=== PATIENT | male | born 1995 | race Caucasian/White ===

== ENCOUNTER 2018-09-27 13:17 | Inpatient (IN) | payer BC, OTHER ==
[2018-09-27 13:50] LABS: MODE ROOM AIR; MetHgb Venous 0.3 %; Sample Type Blood venous; Site OTHER; Venous COHb 0.3 %; Venous Fraction OxyHgb 70.7 %; Venous Oxygen Sat 71.1 mmHG (55.0-75.0); Venous Total Hemglobin 18.3 g/dl
[2018-09-27 14:05] LABS: ADD MAN DIFF? NO
[2018-09-27 14:06] LABS: BASOPHILS % 0.3 % (0.0-2.0); HEMATOCRIT 50.9 % (42.0-52.0); HEMOGLOBIN 16.8 g/dl (14.0-18.0); LYMPHOCYTES # 1.4 10^3/ul (0.8-2.9); LYMPHOCYTES % 14.3 % (15.0-51.0); MEAN CORPUSCULAR HEMOGLOBIN 30.8 pg (29.0-33.0); MEAN CORPUSCULAR VOLUME 93.2 fl (82.0-101.0); MEAN PLATELET VOLUME 8.8 fl (7.4-10.4); MONOCYTE # 0.6 10^3/ul (0.3-0.9); MONOCYTES % 5.9 % (0.0-11.0); NEUTROPHIL # 7.9 10^3/ul (1.6-7.5); NEUTROPHILS % 79.1 % (39.0-77.0); PLATELET COUNT 266 10^3/UL (140-415); RED BLOOD COUNT 5.46 10^6/ul (4.70-6.10)
[2018-09-27] MEDS: SOD CHLORIDE 0.9% 760 ML IV (14:09)
[2018-09-27 14:17] LABS: ADD UMIC NO; UR ASCORBIC ACID NEGATIVE (NEGATIVE); UR BILIRUBIN (Dip) NEGATIVE (NEGATIVE); UR BLOOD (Dip) NEGATIVE (NEGATIVE); UR CLARITY CLEAR (CLEAR); UR COLOR STRAW (YELLOW); UR GLUCOSE (Dip) 3+ mg/dL (NEGATIVE); UR KETONES (Dip) 2+ mg/dL (NEGATIVE); UR LEUKOCYTE ESTERASE (Dip) NEGATIVE Leu/ul (NEGATIVE); UR NITRITE (Dip) NEGATIVE (NEGATIVE); UR TOTAL PROTEIN (Dip) NEGATIVE (NEGATIVE); UR UROBILINOGEN (Dip) NEGATIVE (NEGATIVE)
[2018-09-27 14:26] LABS: ANION GAP 30 (5-13); BLOOD UREA NITROGEN 13 mg/dl (7-20); CALCIUM 10.1 mg/dl (8.4-10.2); CARBON DIOXIDE 12 mmol/L (21-31); CHLORIDE 95 mmol/L (97-110); Estimated GFR > 60 mL/min (>60); MAGNESIUM 1.8 mg/dl (1.7-2.5); PHOSPHORUS 5.5 mg/dl (2.5-4.9); SODIUM 137 mmol/L (135-144)
[2018-09-27 14:32] LABS: GLUCOSE 546 mg/dl (70-220)
[2018-09-27 14:42] LABS: AMPHETAMINE/METHAMPHETAMINE Negative (NEGATIVE); BARBITURATES Negative (NEGATIVE); BENZODIAZEPINES Negative (NEGATIVE); CANNABINOIDS Negative (NEGATIVE); COCAINE Negative (NEGATIVE); OPIATES Negative (NEGATIVE)
[2018-09-27 14:58] LABS: ETHANOL < 10.0 mg/dl (0-0)
[2018-09-27] MEDS ORDERED: D10/0.45% NACL + KCL 40 MEQ 1,000 ML IV (15:11)
[2018-09-27] MEDS ORDERED: SOD CHLORIDE 0.9% 1,000 ML IV (15:11)
[2018-09-27] MEDS ORDERED: NS + KCL 40 MEQ 1,000 ML IV (15:11)
[2018-09-27] MEDS: LACTATED RINGER'S 760 ML IV (15:20)
[2018-09-27] MEDS ORDERED: DEXTROSE 50% 50 ML SYRINGE IV ×2 (15:30)
[2018-09-27 15:47] LABS: HEMOGLOBIN A1C 13.1 % (0-5.9)
[2018-09-27 16:11] LABS: AADO2 Venous 73.1 mmHg; MODE ROOM AIR; MetHgb Venous 0.2 %; Sample Type Blood venous; Site OTHER; Venous COHb 0.8 %; Venous Fraction OxyHgb 71.9 %; Venous Oxygen Sat 72.6 mmHG (55.0-75.0); Venous Total Hemglobin 17.5 g/dl
[2018-09-27 16:49] LABS: ANION GAP 23 (5-13); BLOOD UREA NITROGEN 12 mg/dl (7-20); CALCIUM 9.5 mg/dl (8.4-10.2); CARBON DIOXIDE 16 mmol/L (21-31); CHLORIDE 100 mmol/L (97-110); CREATININE 0.78 mg/dl (0.61-1.24); Estimated GFR > 60 mL/min (>60); GLUCOSE 287 mg/dl (70-220); PHOSPHORUS 3.4 mg/dl (2.5-4.9); POTASSIUM 4.3 mmol/L (3.5-5.1); SODIUM 139 mmol/L (135-144)
[2018-09-27] MEDS ORDERED: DOCUSATE SODIUM 100 MG CAP PO (17:00)
[2018-09-27] MEDS ORDERED: ONDANSETRON 4 MG INJ IV (17:00)
[2018-09-27] MEDS ORDERED: ZOLPIDEM 5 MG TAB PO (17:00)
[2018-09-27] MEDS ORDERED: NACL 0.9% 3 ML SYG IV (17:00)
[2018-09-27] MEDS ORDERED: morphine 2 MG INJ IV (17:00)
[2018-09-27] MEDS: NS + KCL 30 MEQ 1,000 ML IV (17:16)
[2018-09-27] MEDS: INSULIN REGULAR, HUMAN 100 UNIT in SOD CHLORIDE 0.9% 100 ML IV (17:17)
[2018-09-27] MEDS: D10/0.45% NACL + KCL 30 MEQ 1,000 ML IV ×2 (17:18→22:23)
[2018-09-27 19:24] LABS: ANION GAP 16 (5-13); BLOOD UREA NITROGEN 12 mg/dl (7-20); CALCIUM 9.3 mg/dl (8.4-10.2); CARBON DIOXIDE 21 mmol/L (21-31); CHLORIDE 102 mmol/L (97-110); CREATININE 0.66 mg/dl (0.61-1.24); Estimated GFR > 60 mL/min (>60); GLUCOSE 251 mg/dl (70-220); MAGNESIUM 1.9 mg/dl (1.7-2.5); PHOSPHORUS 3.1 mg/dl (2.5-4.9); POTASSIUM 4.1 mmol/L (3.5-5.1); SODIUM 139 mmol/L (135-144)
[2018-09-27] MEDS: DEXTROSE 10 %/0.45 % NACL 1,000 ML IV (22:12)
[2018-09-27 22:35] LABS: ANION GAP 11 (5-13); BLOOD UREA NITROGEN 11 mg/dl (7-20); CALCIUM 8.9 mg/dl (8.4-10.2); CARBON DIOXIDE 23 mmol/L (21-31); CHLORIDE 104 mmol/L (97-110); Estimated GFR > 60 mL/min (>60); GLUCOSE 197 mg/dl (70-220); MAGNESIUM 1.9 mg/dl (1.7-2.5); POTASSIUM 3.7 mmol/L (3.5-5.1); SODIUM 138 mmol/L (135-144)
[2018-09-27] MEDS: ACETAMINOPHEN 325 MG TAB PO (23:21)
[2018-09-27 23:53] LABS: MODE ROOM AIR; MetHgb Venous 0.3 %; Sample Type Blood venous; Site VENOUS LINE; Venous COHb 0.4 %; Venous Fraction OxyHgb 88.7 %; Venous Oxygen Sat 89.3 mmHG (55.0-75.0)
[2018-09-28] MEDS ORDERED: INSULIN GLARGINE [LANTus] (100 UNITS/ML) SYG SC
[2018-09-28] MEDS: INSULIN GLARGINE [LANTus] (100 UNITS/ML) SYG SC (01:21)
[2018-09-28] MEDS: HYDROCODONE/APAP (5/325) TAB PO (01:27)
[2018-09-28] MEDS: D10/0.45% NACL + KCL 30 MEQ 1,000 ML IV (03:17)
[2018-09-28 03:20] LABS: ADD MAN DIFF? NO
[2018-09-28 03:22] LABS: BASOPHILS % 0.3 % (0.0-2.0); EOSINOPHILS % 0.1 % (0.0-7.0); HEMATOCRIT 42.5 % (42.0-52.0); HEMOGLOBIN 14.7 g/dl (14.0-18.0); LYMPHOCYTES # 2.5 10^3/ul (0.8-2.9); LYMPHOCYTES % 24.7 % (15.0-51.0); MEAN CORPUSCULAR HEMOGLOBIN 31.6 pg (29.0-33.0); MEAN CORPUSCULAR HGB CONC 34.6 g/dl (32.0-37.0); MEAN CORPUSCULAR VOLUME 91.4 fl (82.0-101.0); MEAN PLATELET VOLUME 8.3 fl (7.4-10.4); MONOCYTE # 0.8 10^3/ul (0.3-0.9); NEUTROPHIL # 6.6 10^3/ul (1.6-7.5); NEUTROPHILS % 66.5 % (39.0-77.0); PLATELET COUNT 208 10^3/UL (140-415); RED BLOOD COUNT 4.65 10^6/ul (4.70-6.10); RED CELL DISTRIBUTION WIDTH 13.1 % (11.5-14.5)
[2018-09-28 03:42] LABS: ANION GAP 10 (5-13); BLOOD UREA NITROGEN 12 mg/dl (7-20); CARBON DIOXIDE 23 mmol/L (21-31); CHLORIDE 107 mmol/L (97-110); CREATININE 0.69 mg/dl (0.61-1.24); Estimated GFR > 60 mL/min (>60); GLUCOSE 105 mg/dl (70-220); MAGNESIUM 1.8 mg/dl (1.7-2.5); PHOSPHORUS 3.3 mg/dl (2.5-4.9); POTASSIUM 3.3 mmol/L (3.5-5.1); SODIUM 140 mmol/L (135-144)
[2018-09-28] MEDS: POTASSIUM CHLORIDE (SR) 20 MEQ TAB PO ×2 (04:25→10:26)
[2018-09-28] MEDS ORDERED: DEXTROSE 50% 50 ML SYRINGE IV ×2 (04:30)
[2018-09-28] MEDS ORDERED: GLUCOSE GEL 15 GRAM TUBE PO ×2 (04:30)
[2018-09-28] MEDS ORDERED: GLUCOSE GEL 15 GRAM TUBE BUCCAL (04:30)
[2018-09-28] MEDS ORDERED: GLUCAGON 1 MG INJ IM (04:30)
[2018-09-28] MEDS: INSULIN ASPART [NOVOLOG] 3 ML PEN SC ×2 (08:37→08:38)
[2018-09-28 11:34] LABS: ANION GAP 17 (5-13); BLOOD UREA NITROGEN 12 mg/dl (7-20); CALCIUM 9.5 mg/dl (8.4-10.2); CARBON DIOXIDE 15 mmol/L (21-31); CHLORIDE 103 mmol/L (97-110); CREATININE 0.74 mg/dl (0.61-1.24); Estimated GFR > 60 mL/min (>60); GLUCOSE 360 mg/dl (70-220); MAGNESIUM 1.8 mg/dl (1.7-2.5); PHOSPHORUS 3.5 mg/dl (2.5-4.9); SODIUM 135 mmol/L (135-144)
[2018-09-29] MEDS ORDERED: ACCU-CHEK XX (02:00)
== END 2018-09-28 11:00 | disposition home or self-care (01) | DRG 639 ==
LOC: E/R 13:17 → ICU 16:10
DX: E11.10 Type 2 diabetes mellitus with ketoacidosis without coma (principal)
CPT/HCPCS: 36415; 71045; 80048; 80307; 81003; 82803; 82962; 83036; 83735; 84100; 85025; 87081; 93005; 96360; 99291-25

== ENCOUNTER 2019-04-18 12:14 | Inpatient (IN) | payer MEDICAID, BC, OTHER ==
[2019-04-18 12:38] LABS: ADD MAN DIFF? NO
[2019-04-18 12:40] LABS: BASOPHIL # 0.1 10^3/ul (0.0-0.1); BASOPHILS % 0.4 % (0.0-2.0); EOSINOPHILS % 0.1 % (0.0-7.0); HEMATOCRIT 50.7 % (42.0-52.0); HEMOGLOBIN 17.2 g/dl (14.0-18.0); LYMPHOCYTES # 1.6 10^3/ul (0.8-2.9); MEAN CORPUSCULAR HEMOGLOBIN 30.5 pg (29.0-33.0); MEAN CORPUSCULAR HGB CONC 33.9 g/dl (32.0-37.0); MEAN CORPUSCULAR VOLUME 89.9 fl (82.0-101.0); MEAN PLATELET VOLUME 9.2 fl (7.4-10.4); MONOCYTE # 0.6 10^3/ul (0.3-0.9); MONOCYTES % 4.7 % (0.0-11.0); NEUTROPHIL # 10.7 10^3/ul (1.6-7.5); NEUTROPHILS % 82.2 % (39.0-77.0); PLATELET COUNT 281 10^3/UL (140-415); RED BLOOD COUNT 5.64 10^6/ul (4.70-6.10); RED CELL DISTRIBUTION WIDTH 12.5 % (11.5-14.5)
[2019-04-18] MEDS: SOD CHLORIDE 0.9% 1,000 ML IV (12:47)
[2019-04-18] MEDS: ONDANSETRON 4 MG INJ IV ×3 (12:47→21:45)
[2019-04-18] MEDS: LACTATED RINGER'S 1,000 ML IV (12:48)
[2019-04-18 12:59] LABS: ALANINE AMINOTRANSFERASE 29 IU/L (13-69); ALBUMIN 5.4 g/dl (3.3-4.9); ALKALINE PHOSPHATASE 133 IU/L (42-121); ANION GAP 26 (5-13); ASPARTATE AMINO TRANSFERASE 27 IU/L (15-46); BILIRUBIN,INDIRECT 1.1 mg/dl (0-1.1); BILIRUBIN,TOTAL 1.1 mg/dl (0.2-1.3); BLOOD UREA NITROGEN 14 mg/dl (7-20); CALCIUM 10.5 mg/dl (8.4-10.2); CARBON DIOXIDE 15 mmol/L (21-31); CHLORIDE 98 mmol/L (97-110); CREATININE 0.97 mg/dl (0.61-1.24); Estimated GFR > 60 mL/min (>60); POTASSIUM 5.2 mmol/L (3.5-5.1); SODIUM 139 mmol/L (135-144); TOTAL PROTEIN 8.4 g/dl (6.1-8.1)
[2019-04-18 13:08] LABS: GLUCOSE 478 mg/dl (70-220)
[2019-04-18] MEDS ORDERED: D10/0.45% NACL + KCL 40 MEQ 1,000 ML IV (13:09)
[2019-04-18] MEDS ORDERED: DEXTROSE 10%/0.45% NACL 1,000 ML IV (13:09)
[2019-04-18] MEDS ORDERED: NS + KCL 40 MEQ 1,000 ML IV (13:09)
[2019-04-18] MEDS ORDERED: DEXTROSE 50% 50 ML SYRINGE IV ×2 (13:30)
[2019-04-18 13:37] LABS: ADD UMIC NO; UR ASCORBIC ACID NEGATIVE (NEGATIVE); UR BILIRUBIN (Dip) NEGATIVE (NEGATIVE); UR BLOOD (Dip) NEGATIVE (NEGATIVE); UR CLARITY CLEAR (CLEAR); UR COLOR STRAW (YELLOW); UR GLUCOSE (Dip) 3+ mg/dL (NEGATIVE); UR KETONES (Dip) 2+ mg/dL (NEGATIVE); UR LEUKOCYTE ESTERASE (Dip) NEGATIVE Leu/ul (NEGATIVE); UR NITRITE (Dip) NEGATIVE (NEGATIVE); UR SPECIFIC GRAVITY (Dip) 1.027 (1.003-1.030); UR TOTAL PROTEIN (Dip) NEGATIVE (NEGATIVE); UR UROBILINOGEN (Dip) NEGATIVE (NEGATIVE)
[2019-04-18 13:46] LABS: HEMOGLOBIN A1C 12.7 % (0-5.9)
[2019-04-18] MEDS ORDERED: ACETAMINOPHEN 325 MG TAB PO (14:00)
[2019-04-18] MEDS ORDERED: MAGNESIUM HYDROXIDE 30ML CUP PO (14:00)
[2019-04-18] MEDS ORDERED: DOCUSATE SODIUM 100 MG CAP PO (14:00)
[2019-04-18 14:19] LABS: MODE ROOM AIR; MetHgb Venous 0.5 %; Sample Type Blood venous; Site VENOUS LINE; Venous COHb 0.9 %; Venous Oxygen Sat 36.5 mmHG (55.0-75.0); Venous Total Hemglobin 16.9 g/dl
[2019-04-18] MEDS: INSULIN REGULAR, HUMAN 100 UNIT in SOD CHLORIDE 0.9% 100 ML IV (14:23)
[2019-04-18] MEDS: NS + KCL 30 MEQ 1,000 ML IV ×2 (14:24→20:22)
[2019-04-18] MEDS: D10/0.45% NACL + KCL 30 MEQ 1,000 ML IV (15:41)
[2019-04-18 16:01] LABS: ANION GAP 19 (5-13); BLOOD UREA NITROGEN 13 mg/dl (7-20); CALCIUM 9.4 mg/dl (8.4-10.2); CARBON DIOXIDE 15 mmol/L (21-31); CHLORIDE 105 mmol/L (97-110); CREATININE 0.72 mg/dl (0.61-1.24); Estimated GFR > 60 mL/min (>60); GLUCOSE 293 mg/dl (70-220); MAGNESIUM 1.8 mg/dl (1.7-2.5); POTASSIUM 4.5 mmol/L (3.5-5.1); SODIUM 139 mmol/L (135-144)
[2019-04-18 17:37] LABS: AADO2 Venous 72.9 mmHg; MODE ROOM AIR; MetHgb Venous 0.4 %; Sample Type Blood venous; Site VENOUS LINE; Venous Fraction OxyHgb 69.4 %; Venous Oxygen Sat 70.4 mmHG (55.0-75.0); Venous Total Hemglobin 16.6 g/dl
[2019-04-18 17:50] LABS: ANION GAP 18 (5-13); BLOOD UREA NITROGEN 11 mg/dl (7-20); CALCIUM 9.1 mg/dl (8.4-10.2); CARBON DIOXIDE 15 mmol/L (21-31); CHLORIDE 105 mmol/L (97-110); Estimated GFR > 60 mL/min (>60); GLUCOSE 343 mg/dl (70-220); MAGNESIUM 1.9 mg/dl (1.7-2.5); PHOSPHORUS 3.8 mg/dl (2.5-4.9); POTASSIUM 4.8 mmol/L (3.5-5.1); SODIUM 138 mmol/L (135-144)
[2019-04-18] MEDS: INSULIN ASPART [NOVOLOG] 3 ML PEN SC (21:00)
[2019-04-18] MEDS: FAMOTIDINE 20 MG INJ IV (21:19)
[2019-04-18] MEDS: INSULIN GLARGINE [LANTus] (100 UNITS/ML) SYG SC (21:30)
[2019-04-18 21:31] LABS: ADD UMIC NO; UR ASCORBIC ACID NEGATIVE (NEGATIVE); UR BILIRUBIN (Dip) NEGATIVE (NEGATIVE); UR BLOOD (Dip) NEGATIVE (NEGATIVE); UR CLARITY CLEAR (CLEAR); UR COLOR STRAW (YELLOW); UR GLUCOSE (Dip) 3+ mg/dL (NEGATIVE); UR KETONES (Dip) 2+ mg/dL (NEGATIVE); UR LEUKOCYTE ESTERASE (Dip) NEGATIVE Leu/ul (NEGATIVE); UR NITRITE (Dip) NEGATIVE (NEGATIVE); UR SPECIFIC GRAVITY (Dip) 1.023 (1.003-1.030); UR TOTAL PROTEIN (Dip) NEGATIVE (NEGATIVE); UR UROBILINOGEN (Dip) NEGATIVE (NEGATIVE)
[2019-04-18 21:40] LABS: ANION GAP 22 (5-13); CHLORIDE 107 mmol/L (97-110); SODIUM 137 mmol/L (135-144)
[2019-04-18 21:41] LABS: BLOOD UREA NITROGEN 9 mg/dl (7-20); CALCIUM 9.4 mg/dl (8.4-10.2); CREATININE 0.76 mg/dl (0.61-1.24); Estimated GFR > 60 mL/min (>60); GLUCOSE 382 mg/dl (70-220); MAGNESIUM 1.9 mg/dl (1.7-2.5); PHOSPHORUS 3.7 mg/dl (2.5-4.9)
[2019-04-18 21:44] LABS: CARBON DIOXIDE 8 mmol/L (21-31)
[2019-04-18 21:50] LABS: MODE ROOM AIR; MetHgb Venous 0.5 %; Sample Type BLMV; Site VENOUS LINE; Venous COHb 0.8 %; Venous Oxygen Sat 87.1 mmHG (55.0-75.0); Venous Total Hemglobin 17.3 g/dl
[2019-04-18 22:56] LABS: AADO2 Venous 62.7 mmHg; MODE ROOM AIR; MetHgb Venous 0.5 %; Sample Type Blood venous; Site VENOUS LINE; Venous COHb 0.4 %; Venous Fraction OxyHgb 86.8 %; Venous Oxygen Sat 87.6 mmHG (55.0-75.0)
[2019-04-19] MEDS: NS + KCL 30 MEQ 1,000 ML IV ×2 (00:46→09:11)
[2019-04-19 01:25] LABS: AADO2 Venous 57.2 mmHg; MODE ROOM AIR; MetHgb Venous 0.5 %; Sample Type Blood venous; Site VENOUS LINE; Venous COHb 0.2 %; Venous Fraction OxyHgb 90.5 %; Venous Oxygen Sat 91.1 mmHG (55.0-75.0); Venous Total Hemglobin 17.3 g/dl
[2019-04-19 01:40] LABS: BLOOD UREA NITROGEN 10 mg/dl (7-20); CALCIUM 9.5 mg/dl (8.4-10.2); CHLORIDE 109 mmol/L (97-110); CREATININE 0.85 mg/dl (0.61-1.24); Estimated GFR > 60 mL/min (>60); MAGNESIUM 1.8 mg/dl (1.7-2.5); PHOSPHORUS 4.2 mg/dl (2.5-4.9); POTASSIUM 5.7 mmol/L (3.5-5.1); SODIUM 139 mmol/L (135-144)
[2019-04-19 01:42] LABS: ANION GAP 25 (5-13)
[2019-04-19 01:43] LABS: CARBON DIOXIDE < 5 mmol/L (21-31); GLUCOSE 407 mg/dl (70-220)
[2019-04-19] MEDS: NA BICARBONATE 8.4% 50 ML SYG IV (01:53)
[2019-04-19] MEDS: ACCU-CHEK XX (02:00)
[2019-04-19] MEDS: SOD CHLORIDE 0.9% 1,000 ML IV ×2 (02:34→05:56)
[2019-04-19] MEDS: ONDANSETRON 4 MG INJ IV ×5 (03:44→22:14)
[2019-04-19 05:22] LABS: AADO2 Venous 79.3 mmHg; MODE ROOM AIR; MetHgb Venous 0.5 %; Sample Type Blood venous; Site VENOUS LINE; Venous COHb 0.5 %; Venous Fraction OxyHgb 78.4 %; Venous Oxygen Sat 79.2 mmHG (55.0-75.0); Venous Total Hemglobin 16.8 g/dl
[2019-04-19 05:48] LABS: ANION GAP 26 (5-13); BLOOD UREA NITROGEN 11 mg/dl (7-20); CALCIUM 9.2 mg/dl (8.4-10.2); CHLORIDE 115 mmol/L (97-110); CREATININE 0.99 mg/dl (0.61-1.24); Estimated GFR > 60 mL/min (>60); GLUCOSE 318 mg/dl (70-220); MAGNESIUM 2.1 mg/dl (1.7-2.5); PHOSPHORUS 4.7 mg/dl (2.5-4.9); POTASSIUM 4.8 mmol/L (3.5-5.1); SODIUM 146 mmol/L (135-144)
[2019-04-19 05:51] LABS: CARBON DIOXIDE 5 mmol/L (21-31)
[2019-04-19] MEDS: SODIUM BICARBONATE (IV ADD) 150 MEQ in DEXTROSE 5% 1,000 ML IV (06:48)
[2019-04-19] MEDS: INSULIN ASPART [NOVOLOG] 3 ML PEN SC ×7 (07:35→21:00)
[2019-04-19] MEDS: FAMOTIDINE 20 MG INJ IV ×2 (08:07→21:05)
[2019-04-19] MEDS: ENOXAPARIN 40 MG/0.4 ML SYG SC (08:24)
[2019-04-19 09:25] LABS: MODE ROOM AIR; MetHgb Venous 0.4 %; Sample Type Blood venous; Site VENOUS LINE; Venous COHb 0.2 %; Venous Fraction OxyHgb 77.6 %; Venous Oxygen Sat 78.1 mmHG (55.0-75.0); Venous Total Hemglobin 15.7 g/dl
[2019-04-19] MEDS: INSULIN REGULAR, HUMAN 100 UNIT in SOD CHLORIDE 0.9% 100 ML IV ×2 (09:34→17:24)
[2019-04-19] MEDS: D10/0.45% NACL + KCL 30 MEQ 1,000 ML IV ×2 (10:11→15:06)
[2019-04-19 10:24] LABS: ANION GAP 18 (5-13); BLOOD UREA NITROGEN 10 mg/dl (7-20); CALCIUM 8.9 mg/dl (8.4-10.2); CHLORIDE 117 mmol/L (97-110); CREATININE 0.87 mg/dl (0.61-1.24); Estimated GFR > 60 mL/min (>60); GLUCOSE 205 mg/dl (70-220); PHOSPHORUS 2.8 mg/dl (2.5-4.9); POTASSIUM 4.3 mmol/L (3.5-5.1); SODIUM 145 mmol/L (135-144)
[2019-04-19 10:29] LABS: CARBON DIOXIDE 10 mmol/L (21-31)
[2019-04-19 13:20] LABS: MODE ROOM AIR; MetHgb Venous 0.4 %; Sample Type Blood venous; Site VENOUS LINE; Venous COHb 0.3 %; Venous Fraction OxyHgb 80.7 %; Venous Oxygen Sat 81.3 mmHG (55.0-75.0); Venous Total Hemglobin 14.7 g/dl
[2019-04-19 13:41] LABS: ANION GAP 15 (5-13); BLOOD UREA NITROGEN 9 mg/dl (7-20); CALCIUM 8.9 mg/dl (8.4-10.2); CARBON DIOXIDE 14 mmol/L (21-31); CHLORIDE 115 mmol/L (97-110); CREATININE 0.77 mg/dl (0.61-1.24); Estimated GFR > 60 mL/min (>60); GLUCOSE 241 mg/dl (70-220); PHOSPHORUS 2.3 mg/dl (2.5-4.9); POTASSIUM 4.4 mmol/L (3.5-5.1); SODIUM 144 mmol/L (135-144)
[2019-04-19 17:33] LABS: MODE ROOM AIR; MetHgb Venous 0.3 %; Sample Type Blood venous; Site OTHER; Venous COHb 0.7 %; Venous Fraction OxyHgb 51.8 %; Venous Oxygen Sat 52.3 mmHG (55.0-75.0); Venous Total Hemglobin 16.6 g/dl
[2019-04-19 17:46] LABS: ANION GAP 7 (5-13); BLOOD UREA NITROGEN 8 mg/dl (7-20); CARBON DIOXIDE 18 mmol/L (21-31); CHLORIDE 116 mmol/L (97-110); CREATININE 0.67 mg/dl (0.61-1.24); Estimated GFR > 60 mL/min (>60); GLUCOSE 192 mg/dl (70-220); MAGNESIUM 1.9 mg/dl (1.7-2.5); PHOSPHORUS 1.5 mg/dl (2.5-4.9); POTASSIUM 3.8 mmol/L (3.5-5.1); SODIUM 141 mmol/L (135-144)
[2019-04-19 18:27] LABS: THYROID STIMULATING HORMONE 0.073 MIU/L (0.465-4.680)
[2019-04-19] MEDS: INSULIN GLARGINE [LANTus] (100 UNITS/ML) SYG SC (21:05)
[2019-04-19 22:11] LABS: ANION GAP 4 (5-13); BLOOD UREA NITROGEN 10 mg/dl (7-20); CALCIUM 8.9 mg/dl (8.4-10.2); CARBON DIOXIDE 21 mmol/L (21-31); CHLORIDE 112 mmol/L (97-110); CREATININE 0.68 mg/dl (0.61-1.24); Estimated GFR > 60 mL/min (>60); GLUCOSE 114 mg/dl (70-220); MAGNESIUM 1.7 mg/dl (1.7-2.5); PHOSPHORUS 1.4 mg/dl (2.5-4.9); POTASSIUM 3.3 mmol/L (3.5-5.1); SODIUM 137 mmol/L (135-144)
[2019-04-19] MEDS: POTASSIUM PHOSPHATE 30 MM in SOD CHLORIDE 0.9% 250 ML IVPB (23:00)
[2019-04-19] MEDS ORDERED: MAGNESIUM SULFATE 2 GM/50 ML 50 ML (23:11)
[2019-04-19] MEDS: MAGNESIUM SULFATE 2 GM/50 ML 50 ML IVPB (23:17)
[2019-04-19] MEDS: MAGNESIUM SULFATE 4 GM/100 ML 100 ML IVPB (23:24)
[2019-04-20] MEDS: POTASSIUM PHOSPHATE 30 MM in SOD CHLORIDE 0.9% 250 ML IVPB (00:15)
[2019-04-20] MEDS: POTASSIUM PHOSPHATE 40 MEQ in SOD CHLORIDE 0.9% 250 ML IVPB (00:16)
[2019-04-20] MEDS: ACCU-CHEK XX (02:21)
[2019-04-20 05:28] LABS: ANION GAP 6 (5-13); BLOOD UREA NITROGEN 9 mg/dl (7-20); CALCIUM 8.5 mg/dl (8.4-10.2); CARBON DIOXIDE 22 mmol/L (21-31); CHLORIDE 109 mmol/L (97-110); Estimated GFR > 60 mL/min (>60); GLUCOSE 230 mg/dl (70-220); MAGNESIUM 1.8 mg/dl (1.7-2.5); POTASSIUM 3.6 mmol/L (3.5-5.1); SODIUM 137 mmol/L (135-144)
[2019-04-20] MEDS: ONDANSETRON 4 MG INJ IV (05:43)
[2019-04-20 05:45] LABS: FREE T4 (FREE THYROXINE) 0.88 ng/dl (0.79-2.35)
[2019-04-20 05:59] LABS: TRIIODOTHYRONINE 0.63 ng/ml (0.97-1.69)
[2019-04-20] MEDS: FAMOTIDINE 20 MG INJ IV (08:23)
[2019-04-20] MEDS: INSULIN ASPART [NOVOLOG] 3 ML PEN SC ×6 (08:44→17:17)
[2019-04-20] MEDS: ENOXAPARIN 40 MG/0.4 ML SYG SC (08:45)
[2019-04-20] MEDS: MAGNESIUM SULFATE 2 GM/50 ML 50 ML IVPB (09:58)
== END 2019-04-20 18:00 | disposition home or self-care (01) | DRG 639 ==
LOC: TEL 04-20 05:10 → E/R 12:14 → ICU 13:25
PROVIDERS: Internal Medicine
DX: E10.10 Type 1 diabetes mellitus with ketoacidosis without coma (principal); E86.0 Dehydration; F17.200 Nicotine dependence, unspecified, uncomplicated; Z91.14 Patient's other noncompliance with medication regimen; F41.1 Generalized anxiety disorder
CPT/HCPCS: 36415; 80048; 80053; 81003; 82803; 82962; 83036; 83735; 84100; 84439; 84443; 84480; 85025; 87081; 96374; 99285-25